=== PATIENT | female | born 1980 | race Caucasian/White ===

== ENCOUNTER 2018-06-20 18:21 | Emergency (ER) | payer OTHER ==
--- OUTSIDE RECORDS SUMMARY | 2018-06-20 18:23 | XMS REPORT ---
:1980 [facility] Address [address] [place] [address] Dr. Goldsmith [address] [place] [id number] Care Team Providers Name Role Phone Unavailable Unavailable Unavailable Problems This patient has no known problems. Allergies, Adverse Reactions, Alerts This patient has no known allergies or adverse reactions. Medications This patient has no known medications.
--- NOTE | 2018-06-20 21:39 | ER ---
Nurse's Notes [facility] Name: Luis Enrique Isbell Age: 37 yrs Sex: Female : 1980 Arrival Date: 06/20/2018 Time: 18:23 Bed External Waiting Private MD: Diagnosis: Presentation: 06/20 19:35 Note Registration staff states that patient is currently in L\T\D. aj1 21:38 Note L\T\D staff states that patient is no longer in L\T\D, patient has not returned to ER aj 1 coleman at this time. ED Course: 18:23 Patient arrived in ED. tw3 Administered Medications: No medications were administered Outcome: 21:38 Patient left the ED. aj1 Signatures: Arline Em RN RN aj1 Josselyn Wilde tw3
== END 2018-06-20 21:38 | disposition left against medical advice (07) ==
LOC: ER 18:21
DX: Z53.21 Procedure and treatment not carried out due to patient leaving prior to being seen by health care provider (principal)

== ENCOUNTER 2018-11-04 14:00 | Inpatient (IN) | payer OTHER ==
--- OUTSIDE RECORDS SUMMARY | 2018-11-04 15:05 | XMS REPORT ---
:1980 [facility] Address [address] [place] [address] Dr. Goldsmith [address] [place] [id number] Care Team Providers Name Role Phone Unavailable Unavailable Unavailable Problems This patient has no known problems. Allergies, Adverse Reactions, Alerts This patient has no known allergies or adverse reactions. Medications This patient has no known medications.
[2018-11-04] MEDS ORDERED: Ringers Lactate 1,000 ML IV PRN (15:31)
[2018-11-04] MEDS ORDERED: Ringers Lactate 1,000 ML IV SCH (16:00)
[2018-11-04] MEDS ORDERED: OXYTOCIN/LR 20 UNIT/1,000 ML BAG IV SCH (16:00)
[2018-11-04 16:05] VITALS: BMI 30.9
[2018-11-04 16:17] LABS: Absolute Lymphocytes (CBC) 1.8 K/uL (0.7-4.9); Basophils % 0.5 % (0-1.3); Hematocrit 32.1 % (36.0-45.0); Lymphocytes % 26.3 % (15.3-44.8); MPV 10.3 fL (7.6-11.3); RBC Red Blood Cell Count 3.99 M/uL (3.86-4.86)
[2018-11-04 16:29] LABS: Urine Appearance CLEAR; Urine Bilirubin NEGATIVE (NEG); Urine Blood 3+ (NEG); Urine Color YELLOW; Urine Glucose NEGATIVE (NEG); Urine Microscopic Reflex ORDER UMIC; Urine Protein NEGATIVE (NEG); Urine Specific Gravity <=1.005 (1.005-1.030); Urine Urobilinogen 0.2 mg/dL (0.2-1.0)
[2018-11-04] MEDS ORDERED: miSOPROStol 100 MCG TAB VAG ONE (16:40)
[2018-11-04] MEDS ORDERED: ZOLPIDEM TARTRATE 5 MG TABLET PO PRN (16:43)
[2018-11-04] MEDS ORDERED: PROMETHAZINE 25 MG/ML VIAL IM PRN (16:43)
[2018-11-04] MEDS ORDERED: BUTORPHANOL 1 MG/ML INJ IV PRN (16:43)
[2018-11-04] MEDS ORDERED: miSOPROStol 100 MCG TAB VAG SCH ×2 (17:00→22:40)
[2018-11-04 17:04] LABS: Urine Bacteria <20 /HPF (<20); Urine Culture Reflex Order NOT NEEDED
--- NOTE | 2018-11-04 21:46 | PREOPHP ---
Date of Admission: 11/04/2018 A 38-year-old, 3, para 2, followed antepartum, noted to be gestational diabetic, but in good control with glyburide. Also, with an unfavorable cervix. Patient was given the option of waiting u ntil next week when she would be past 40 weeks for labor induction. Both of her other 2 pregnancies went past the due date before she went into labor or was finally put into labor. Patient states she wishes to proceed now, knows that because of an unfavorable cervix, this could increase the chance fo r a long labor or . Other risks and side effects of Cytotec have been discussed. She is 1 cm, vertex, -1 to -2 station. The cervix though is fairly long. A 50 mcg of Cytotec inserted. We will insert 25 mcg next dose 6 hours from now if needed and another dose 6 hours from that second dose if needed. If rupture of membranes occurs, we will stop Cytotec and start oxytocin sometime within an hour or two after membrane rupture. Full labor and delivery ta cecil. Anticipate delivery sometime tomorrow. Rh positive. Immune to Rubella. Negative beta strep sc roberto. NBC/MODL Voice ID: [id number]
[2018-11-04 23:08] LABS: RPR (Rapid Plasma Reagin) NON-REACT (NON-REACT)
[2018-11-05] MEDS ORDERED: ROPIVACAINE HCL 100 ML IV ONE (10:02)
[2018-11-05] MEDS ORDERED: ROPIVACAINE HCL 0.2% 20ML AMP IV ONE (10:02)
[2018-11-05] MEDS ORDERED: FENTANYL CITR 100 MCG/2 ML IV ONE (10:03)
[2018-11-05] MEDS ORDERED: BUPIVACAINE 0.25% PF 10 ML VIAL ONE (11:07)
[2018-11-05] MEDS ORDERED: IBUPROFEN 200 MG TAB PO PRN (11:23)
[2018-11-05] MEDS ORDERED: METHYLERGONOVINE 0.2MG/ML AMP IM ONE (11:23)
[2018-11-05] MEDS ORDERED: CARBOPROST TROME 250 MCG/ML IM ONE (11:23)
[2018-11-05] MEDS ORDERED: LIDOCAINE 1% 20 ML MDV ONE (11:23)
[2018-11-05] MEDS ORDERED: DIPHENHYDRAMINE 25 MG TAB/CAP PO PRN (11:23)
[2018-11-05] MEDS ORDERED: ACETAMINOPHEN 500 MG TAB PO PRN (11:23)
[2018-11-05] MEDS ORDERED: Oxycodone HCl/Acetaminophen 1 TAB TAB PO PRN ×2 (11:23)
[2018-11-05] MEDS ORDERED: DOCUSATE NA/SENNA CONC 1 TAB PO PRN (11:23)
[2018-11-05] MEDS ORDERED: BISACODYL 10 MG RECTAL SUPP RECT PRN (11:23)
[2018-11-05] MEDS ORDERED: MEPERIDINE HCL 50 MG/ML AMP ONE (11:24)
[2018-11-05] MEDS ORDERED: OXYTOCIN/LR 20 UNIT/1,000 ML BAG IV SCH (12:00)
--- NOTE | 2018-11-05 16:04 | PN ---
Overnight, patient has made progress. She had one initial dose of 50 mcg of Cytotec followed 6 hours apart by two 25 mcg doses of Cytotec. She is now 3 cm, still posterior, 50% effaced. Baby well con lied. Rupture of membranes. Clear fluid. FHTs normal, reactive. I think we should start seeing a more active labor pattern. Patient says she is going to try natural, but she has not ruled out the p ossibility for epidural. Doing well. Anticipate delivery sometime later today. MALVIN/KATHERYN Voice ID: [id number] Report ID: [id number]
--- NOTE | 2018-11-05 21:08 | OP ---
Surgeon: López Herzog MD A 38-year-old, 3, para 2, has Cytotec inserted last night, 39 weeks 1 day, went into a good a ctive labor pattern after rupture of membranes this morning. She was 3 cm this morning. Clear fluid . After she achieved 6 cm, requested epidural anesthesia. This was given, but the patient delivered very rapidly of an estimated 7-pound female Apgars 9 and 9. No episiotomy. Small first degree lace ration. One [id number]-[id number] stitch with 2-0 chromic at the apex of the left labia minora. Schultze delivery of the placenta, which was inspected and noted to be intact and normal. Less than 200 cc bl ood loss. Rh positive, immune to Rubella. Negative beta strep screen. The patient tolerated all pr ocedures well. Final Diagnoses: Intrauterine gestation, 39 weeks 1 day, with Cytotec insertion, vaginal delivery at 39 weeks 2 days, epidural anesthesia. MALVIN/KATHERYN Voice ID: [id number] Report ID: [id number]
[2018-11-06 13:23] VITALS: BP 138/82; TEMP 97.9
[2018-11-06 13:24] LABS: HBsAG Nonreactive (Nonreactive)
--- NOTE | 2018-11-07 05:56 | DS ---
Date of Discharge: 11/06/2018 Hospital Course: 38-year-old, 3, para 2, at 39 weeks 1 day, had Cytotec inserted 3 times dur ing the night, next morning was noted to be 3 cm. Rupture of membranes performed, clear fluid. Alea ent went to an active labor pattern. Had epidural anesthesia established, but not until she was abou t 6 cm, went rapidly to complete thereafter, delivered a 6-pound 12-ounce female, Apgars 9 and 9. Ve ry small first-degree laceration, requiring 1 kfxzwl-dt-vfkyf stitch, 2-0 chromic. Schultze delivery of the placenta, which was inspected and noted to be intact and normal. Very small blood loss, less than 200 cc. Rh positive, immune to Rubella, negative beta strep screen. ; afebrile, amb ulating, voiding. Lochia is normal. She will be dismissed later this morning to report back to my o ffice in 6 weeks for followup. To report any temperature elevation of 100 degrees or greater, severe pain, heavy bleeding, or any other type of abnormalities. Dismissed with tramadol for analgesia, al though she has taken no pain pills since the delivery and probably does not need these, in which case she will have the nurses destroy the prescription. Patient requested tubal sterilization, but this has been denied at this hospital, so we have arranged for her to go to [facility] in [place] for postpartu m tubal, although she knows this is her responsibility to make the proper arrangements, although we h ave set the stage. Final Diagnosis: Term intrauterine , 39 weeks 1 day, Cytotec for cervical ripening; 39 week s 2 days, vaginal delivery, epidural anesthesia. MALVIN/KATHERYN Voice ID: [id number] Report ID: [id number]
== END 2018-11-06 14:15 | disposition home or self-care (01) | DRG 807 ==
LOC: 2ND-WC 15:03
PROVIDERS: ADMIT Specialist; ATTEND Specialist
PROC: 0HQ9XZZ Repair Perineum Skin, External Approach (ICD-10-PCS; principal; 2018-11-04)
PROC: 10E0XZZ Delivery of Products of Conception, External Approach (ICD-10-PCS; 2018-11-04)
PROC: 3E0P7VZ Introduction of Hormone into Female Reproductive, Via Natural or Artificial Opening (ICD-10-PCS; 2018-11-04)
PROC: 10907ZC Drainage of Amniotic Fluid, Therapeutic from Products of Conception, Via Natural or Artificial Opening (ICD-10-PCS; 2018-11-04)
DX: O70.0 First degree perineal laceration during delivery (principal); Z37.0 Single live birth; Z3A.39 39 weeks gestation of pregnancy; O24.425 Gestational diabetes mellitus in childbirth, controlled by oral hypoglycemic drugs
CPT/HCPCS: 36415; 81003; 81015; 85025; 86592; 86901; 87340; J0595; J2175; J2210; J2550; J2590; J2795; J3010